=== PATIENT | female | born 1945 | race Two or more races ===

== ENCOUNTER → 2017-03-07 | Outpatient (CLI) | payer OTHER ==
[~2017-03-07] MED LIST: ANASTROZOLE1 MG PO; NABUMETONE500 MG PO; PERCOCET 5/3251 TAB PO; RELAFEN500 MG PO; VYTORIN 10/10 T1 TAB; [UNRECOGNIZED DRUG - OTHER] PO
== END | disposition home or self-care (01) ==
LOC: MAMO-SONO 07:52
DX: D05.11 Intraductal carcinoma in situ of right breast (principal)

== ENCOUNTER 2017-03-28 09:48 | Outpatient (CLI) | payer OTHER | END 2017-03-28 09:52 | disposition home or self-care (01) | LOC: MRI 09:48 | DX: M51.36 Other intervertebral disc degeneration, lumbar region (principal); M54.5 Low back pain | CPT/HCPCS: 72148 ==

== ENCOUNTER 2017-03-28 09:59 | Outpatient (CLI) | payer OTHER | END 2017-03-28 10:02 | disposition home or self-care (01) | LOC: RAD 09:59 | DX: M51.36 Other intervertebral disc degeneration, lumbar region (principal) ==

== ENCOUNTER 2017-03-28 12:23 | Outpatient (CLI) | payer OTHER | END 2017-03-28 13:00 | disposition home or self-care (01) | LOC: NUCLEAR 12:23 | DX: M85.80 Other specified disorders of bone density and structure, unspecified site (principal); E55.9 Vitamin D deficiency, unspecified; M81.0 Age-related osteoporosis without current pathological fracture ==

== ENCOUNTER 2017-04-07 07:15 | Day surgery (SDC) | payer OTHER | END 2017-04-07 16:15 | disposition home or self-care (01) | LOC: CIR.AMB 07:15 | DX: M47.896 Other spondylosis, lumbar region (principal) ==

== ENCOUNTER 2017-04-24 07:25 | Outpatient (CLI) | payer OTHER | END 2017-04-24 09:57 | disposition home or self-care (01) | LOC: RAD 07:25 | DX: M25.561 Pain in right knee (principal); M25.562 Pain in left knee ==

== ENCOUNTER 2017-05-02 10:05 | Outpatient (CLI) | payer OTHER | END 2017-05-02 10:11 | disposition home or self-care (01) | LOC: RAD 10:05 | DX: M25.571 Pain in right ankle and joints of right foot (principal) ==

== ENCOUNTER 2017-09-28 08:35 | Outpatient (CLI) | payer OTHER | END 2017-09-28 08:47 | disposition home or self-care (01) | LOC: RAD 08:35 | DX: M19.90 Unspecified osteoarthritis, unspecified site (principal) ==

== ENCOUNTER 2017-10-20 07:32 | Outpatient (CLI) | payer OTHER | END 2017-10-20 07:59 | disposition home or self-care (01) | LOC: MAMO-SONO 07:32 | DX: Z12.31 Encounter for screening mammogram for malignant neoplasm of breast (principal); Z87.898 Personal history of other specified conditions; N60.11 Diffuse cystic mastopathy of right breast; N60.12 Diffuse cystic mastopathy of left breast ==

== ENCOUNTER 2018-01-22 07:58 | Outpatient (CLI) | payer OTHER | END 2018-01-22 12:43 | disposition home or self-care (01) | LOC: LAB 07:58 | DX: D05.01 Lobular carcinoma in situ of right breast (principal); D64.89 Other specified anemias; R74.0 Nonspecific elevation of levels of transaminase and lactic acid dehydrogenase [LDH] ==

== ENCOUNTER 2018-04-26 07:19 | Outpatient (CLI) | payer OTHER | END 2018-04-26 07:28 | disposition home or self-care (01) | LOC: RAD 07:19 | DX: M19.90 Unspecified osteoarthritis, unspecified site (principal) ==

== ENCOUNTER 2018-05-10 07:55 | Outpatient (CLI) | payer OTHER | END 2018-05-10 08:30 | disposition home or self-care (01) | LOC: NUCLEAR 07:55 | DX: M25.461 Effusion, right knee (principal); M25.462 Effusion, left knee; M79.662 Pain in left lower leg; M79.661 Pain in right lower leg ==

== ENCOUNTER 2018-07-12 13:25 | Outpatient (CLI) | payer OTHER | END 2018-07-12 13:34 | disposition home or self-care (01) | LOC: RAD 501 13:25 | DX: M25.522 Pain in left elbow (principal) ==

== ENCOUNTER 2018-07-31 07:56 | Outpatient (CLI) | payer OTHER | END 2018-07-31 08:02 | disposition home or self-care (01) | LOC: RAD 07:56 | DX: M54.2 Cervicalgia (principal); M54.6 Pain in thoracic spine; M54.5 Low back pain ==

== ENCOUNTER 2018-08-29 10:52 | Outpatient (CLI) | payer OTHER | END 2018-08-29 11:05 | disposition home or self-care (01) | LOC: NUCLEAR 10:52 | DX: I87.2 Venous insufficiency (chronic) (peripheral) (principal) ==

== ENCOUNTER 2018-08-31 10:00 | Outpatient (CLI) | payer OTHER | END 2018-08-31 10:09 | disposition home or self-care (01) | LOC: NUCLEAR 10:00 | DX: I77.6 Arteritis, unspecified (principal); I73.9 Peripheral vascular disease, unspecified ==

== ENCOUNTER → 2018-09-03 | Outpatient (CLI) | payer OTHER | END | disposition home or self-care (01) | LOC: MAMO-SONO 08:15 | DX: N60.11 Diffuse cystic mastopathy of right breast (principal); D05.81 Other specified type of carcinoma in situ of right breast ==

== ENCOUNTER 2018-12-13 08:17 | Outpatient (CLI) | payer OTHER | END 2018-12-13 08:22 | disposition home or self-care (01) | LOC: MRI 08:17 | DX: M54.17 Radiculopathy, lumbosacral region (principal) | CPT/HCPCS: 72148 ==

== ENCOUNTER → 2018-12-31 | Outpatient (CLI) | payer OTHER | END | disposition home or self-care (01) | LOC: RAD 12:02 | DX: S62.91XA Unspecified fracture of right hand, initial encounter for closed fracture (principal) ==

== ENCOUNTER 2019-02-11 11:31 | Outpatient (CLI) | payer OTHER | END 2019-02-11 12:00 | disposition home or self-care (01) | LOC: RAD 11:31 | DX: S92.302A Fracture of unspecified metatarsal bone(s), left foot, initial encounter for closed fracture (principal) ==

== ENCOUNTER 2019-09-25 08:15 | Outpatient (CLI) | payer OTHER | END 2019-09-25 08:18 | disposition home or self-care (01) | LOC: MAMO-SONO 08:15 | PROVIDERS: ATTEND Internal Medicine Hematology & Oncology | DX: Z12.31 Encounter for screening mammogram for malignant neoplasm of breast (principal); Z17.0 Estrogen receptor positive status [ER+]; D05.11 Intraductal carcinoma in situ of right breast; N60.11 Diffuse cystic mastopathy of right breast; N60.12 Diffuse cystic mastopathy of left breast ==

== ENCOUNTER 2019-10-03 08:54 | Outpatient (CLI) | payer OTHER | END 2019-10-03 09:03 | disposition home or self-care (01) | LOC: RAD 08:54 | PROVIDERS: ATTEND Orthopaedic Surgery | DX: M25.561 Pain in right knee (principal); M25.562 Pain in left knee ==

== ENCOUNTER 2020-01-15 07:34 | Outpatient (CLI) | payer OTHER | END 2020-01-15 07:40 | disposition home or self-care (01) | LOC: SONOGRAMA 07:34 | PROVIDERS: ATTEND Surgery | DX: N60.01 Solitary cyst of right breast (principal); N60.11 Diffuse cystic mastopathy of right breast; N60.12 Diffuse cystic mastopathy of left breast ==

== ENCOUNTER 2020-02-03 12:37 | Outpatient (CLI) | payer OTHER | END 2020-02-03 12:53 | disposition home or self-care (01) | LOC: SONOGRAMA 12:37 | PROVIDERS: ATTEND Surgery | DX: N64.59 Other signs and symptoms in breast (principal); N60.11 Diffuse cystic mastopathy of right breast; N60.12 Diffuse cystic mastopathy of left breast; R92.0 Mammographic microcalcification found on diagnostic imaging of breast ==

== ENCOUNTER 2020-02-10 14:16 | Outpatient (CLI) | payer OTHER | END 2020-02-10 14:21 | disposition HB | LOC: RAD 14:16 | DX: M18.12 Unilateral primary osteoarthritis of first carpometacarpal joint, left hand (principal) ==

== ENCOUNTER 2020-04-07 07:35 | Outpatient (CLI) | payer OTHER | END 2020-04-07 07:38 | disposition home or self-care (01) | LOC: RAD 07:35 | PROVIDERS: ATTEND Orthopaedic Surgery | DX: M25.561 Pain in right knee (principal); M25.562 Pain in left knee ==

== ENCOUNTER → 2020-06-08 06:35 | Outpatient (CLI) | payer OTHER | END | disposition home or self-care (01) | LOC: LAB 06:35 | PROVIDERS: ATTEND Family Medicine | DX: E78.2 Mixed hyperlipidemia (principal); Z12.11 Encounter for screening for malignant neoplasm of colon; D64.89 Other specified anemias; I10 Essential (primary) hypertension; E03.8 Other specified hypothyroidism; E55.9 Vitamin D deficiency, unspecified; N39.8 Other specified disorders of urinary system ==

== ENCOUNTER → 2020-06-08 | Outpatient (CLI) | payer OTHER | END | disposition home or self-care (01) | LOC: TOM 08:15 → RAD 09:00 → TOM 06-09 13:20 | PROVIDERS: ATTEND Family Medicine | DX: M25.561 Pain in right knee (principal); G44.89 Other headache syndrome ==

== ENCOUNTER → 2020-06-09 | Outpatient (CLI) | payer OTHER | END | disposition home or self-care (01) | LOC: TOM 13:28 | PROVIDERS: ATTEND Family Medicine | DX: G93.89 Other specified disorders of brain (principal); M25.561 Pain in right knee; G44.89 Other headache syndrome ==

== ENCOUNTER 2020-06-16 07:28 | Outpatient (CLI) | payer OTHER | END 2020-06-16 07:39 | disposition home or self-care (01) | LOC: RAD 07:28 | PROVIDERS: ATTEND Family Medicine | DX: M25.562 Pain in left knee (principal); M25.552 Pain in left hip ==

== ENCOUNTER 2020-06-19 07:14 | Outpatient (CLI) | payer OTHER | END 2020-06-19 07:19 | disposition home or self-care (01) | LOC: RAD 07:14 | PROVIDERS: ATTEND Internal Medicine Cardiovascular Disease | DX: G54.1 Lumbosacral plexus disorders (principal) ==

== ENCOUNTER 2020-06-29 14:05 | Outpatient (CLI) | payer OTHER | END 2020-06-29 14:16 | disposition home or self-care (01) | LOC: MRI 14:05 | PROVIDERS: ATTEND Internal Medicine Cardiovascular Disease | DX: G54.1 Lumbosacral plexus disorders (principal) | CPT/HCPCS: 72148 ==

== ENCOUNTER 2020-07-31 07:56 | Outpatient (CLI) | payer OTHER | END 2020-07-31 08:05 | disposition home or self-care (01) | LOC: RAD 07:56 | PROVIDERS: ATTEND Physical Medicine & Rehabilitation | DX: S62.311A Displaced fracture of base of second metacarpal bone, left hand, initial encounter for closed fracture (principal); M54.6 Pain in thoracic spine ==

== ENCOUNTER → 2020-09-04 13:51 | Outpatient (CLI) | payer OTHER | END | disposition home or self-care (01) | LOC: RAD 13:51 | PROVIDERS: ATTEND Physical Medicine & Rehabilitation | DX: S80.01XA Contusion of right knee, initial encounter (principal); M17.11 Unilateral primary osteoarthritis, right knee; Z96.651 Presence of right artificial knee joint ==

== ENCOUNTER 2020-10-22 07:08 | Outpatient (CLI) | payer OTHER | END 2020-10-22 07:11 | disposition home or self-care (01) | LOC: LAB 07:08 | PROVIDERS: ATTEND Psychiatry & Neurology Neurology | DX: I10 Essential (primary) hypertension (principal); E03.8 Other specified hypothyroidism; G40.109 Localization-related (focal) (partial) symptomatic epilepsy and epileptic syndromes with simple partial seizures, not intractable, without status epilepticus; E55.9 Vitamin D deficiency, unspecified ==

== ENCOUNTER → 2020-10-22 | Outpatient (CLI) | payer OTHER | END | disposition home or self-care (01) | LOC: MRI 09:15 | PROVIDERS: ATTEND Psychiatry & Neurology Neurology | DX: G93.89 Other specified disorders of brain (principal); G30.1 Alzheimer's disease with late onset | CPT/HCPCS: 70551 ==

== ENCOUNTER 2020-10-29 11:07 | Outpatient (CLI) | payer OTHER | END 2020-10-29 11:12 | disposition home or self-care (01) | LOC: RAD 11:07 | PROVIDERS: ATTEND Physical Medicine & Rehabilitation | DX: M19.021 Primary osteoarthritis, right elbow (principal); M19.141 Post-traumatic osteoarthritis, right hand; M79.641 Pain in right hand; M77.11 Lateral epicondylitis, right elbow; M25.512 Pain in left shoulder ==

== ENCOUNTER → 2020-11-11 | Outpatient (CLI) | payer OTHER | END | disposition home or self-care (01) | LOC: RAD 13:31 | PROVIDERS: ATTEND Physical Medicine & Rehabilitation | DX: M51.37 Other intervertebral disc degeneration, lumbosacral region (principal); M54.5 Low back pain ==

== ENCOUNTER 2020-11-20 08:09 | Outpatient (CLI) | payer OTHER | END 2020-11-20 08:18 | disposition home or self-care (01) | LOC: MRI 08:09 | PROVIDERS: ATTEND Anesthesiology Pain Medicine | DX: M43.17 Spondylolisthesis, lumbosacral region (principal); D68.8 Other specified coagulation defects; M47.817 Spondylosis without myelopathy or radiculopathy, lumbosacral region; G89.11 Acute pain due to trauma; M51.36 Other intervertebral disc degeneration, lumbar region | CPT/HCPCS: 72148 ==

== ENCOUNTER 2020-11-23 13:08 | Outpatient (CLI) | payer OTHER | END 2020-11-23 13:12 | disposition home or self-care (01) | LOC: NUCLEAR 13:08 | PROVIDERS: ATTEND Anesthesiology Pain Medicine | DX: M85.9 Disorder of bone density and structure, unspecified (principal); M51.36 Other intervertebral disc degeneration, lumbar region; M47.817 Spondylosis without myelopathy or radiculopathy, lumbosacral region; M81.0 Age-related osteoporosis without current pathological fracture ==

== ENCOUNTER 2020-12-11 06:50 | Day surgery (SDC) | payer OTHER ==
[~2020-12-11 06:50] MED LIST changes: +DAILY VALUE1 EACH PO
== END 2020-12-11 11:10 | disposition home or self-care (01) ==
LOC: CIR.AMB 06:50
PROVIDERS: ATTEND Anesthesiology Pain Medicine
DX: M47.817 Spondylosis without myelopathy or radiculopathy, lumbosacral region (principal); M51.36 Other intervertebral disc degeneration, lumbar region; Z20.822 Contact with and (suspected) exposure to COVID-19

== ENCOUNTER 2021-02-02 07:59 | Outpatient (CLI) | payer OTHER | END 2021-02-02 08:07 | disposition home or self-care (01) | LOC: MAMO-SONO 07:59 | PROVIDERS: ATTEND Family Medicine | DX: N60.11 Diffuse cystic mastopathy of right breast (principal); N60.12 Diffuse cystic mastopathy of left breast; Z12.31 Encounter for screening mammogram for malignant neoplasm of breast ==

== ENCOUNTER 2021-04-23 07:19 | Outpatient (CLI) | payer OTHER | END 2021-04-23 07:20 | disposition home or self-care (01) | LOC: LAB 07:19 | PROVIDERS: ATTEND Family Medicine | DX: D50.9 Iron deficiency anemia, unspecified (principal); N39.0 Urinary tract infection, site not specified; I10 Essential (primary) hypertension; E78.00 Pure hypercholesterolemia, unspecified; Z12.11 Encounter for screening for malignant neoplasm of colon; M19.90 Unspecified osteoarthritis, unspecified site; M18.10 Unilateral primary osteoarthritis of first carpometacarpal joint, unspecified hand ==

== ENCOUNTER 2021-04-24 08:45 | Outpatient (CLI) | payer OTHER | END 2021-04-24 08:51 | disposition home or self-care (01) | LOC: LAB 08:45 | DX: N30.00 Acute cystitis without hematuria (principal); E78.00 Pure hypercholesterolemia, unspecified; Z12.11 Encounter for screening for malignant neoplasm of colon; I10 Essential (primary) hypertension; M19.90 Unspecified osteoarthritis, unspecified site ==

== ENCOUNTER → 2021-06-23 | Outpatient (CLI) | payer OTHER | END | disposition home or self-care (01) | LOC: RAD 08:06 | PROVIDERS: ATTEND Family Medicine | DX: R20.2 Paresthesia of skin (principal); G56.01 Carpal tunnel syndrome, right upper limb ==

== ENCOUNTER 2021-08-10 10:22 | Outpatient (CLI) | payer OTHER | END 2021-08-10 10:37 | disposition home or self-care (01) | LOC: RAD 10:22 | PROVIDERS: ATTEND Orthopaedic Surgery | DX: M54.50 Low back pain, unspecified (principal); M25.561 Pain in right knee; M25.562 Pain in left knee; M79.641 Pain in right hand; M79.642 Pain in left hand; M25.551 Pain in right hip; M25.552 Pain in left hip ==

== ENCOUNTER 2021-08-19 08:11 | Outpatient (CLI) | payer OTHER | END 2021-08-19 08:12 | disposition home or self-care (01) | LOC: NUCLEAR 08:11 | PROVIDERS: ATTEND Orthopaedic Surgery | DX: M25.461 Effusion, right knee (principal); M25.462 Effusion, left knee ==

== ENCOUNTER 2021-09-13 10:50 | Outpatient (CLI) | payer OTHER | END 2021-09-13 14:33 | disposition home or self-care (01) | LOC: TOM 10:50 | PROVIDERS: ATTEND Psychiatry & Neurology Clinical Neurophysiology | DX: I62.03 Nontraumatic chronic subdural hemorrhage (principal) ==

== ENCOUNTER → 2021-09-14 06:34 | Outpatient (CLI) | payer OTHER | END | disposition home or self-care (01) | LOC: LAB 06:34 | PROVIDERS: ATTEND Psychiatry & Neurology Clinical Neurophysiology | DX: E53.8 Deficiency of other specified B group vitamins (principal); E03.9 Hypothyroidism, unspecified ==

== ENCOUNTER 2021-09-14 12:52 | Inpatient (IN) | payer OTHER ==
[~2021-09-14] VITALS: Ht 149.9 cm; Wt 54.4 kg
== END 2021-09-23 08:04 | disposition designated cancer center or children's hospital (05) | DRG 282 ==
LOC: ER 12:52 → SEC-K 20:39 → MEDI 09-15 12:11 → SEC-K 09-15 15:18 → MEDJ 09-15 16:20
PROVIDERS: ADMIT Internal Medicine; ATTEND Internal Medicine
PROC: B246YZZ Ultrasonography of Right and Left Heart using Other Contrast (ICD-10-PCS; principal; 2021-09-15)
PROC: B246ZZZ Ultrasonography of Right and Left Heart (ICD-10-PCS; 2021-09-15)
DX: I21.4 Non-ST elevation (NSTEMI) myocardial infarction (principal); R00.1 Bradycardia, unspecified; E66.8 Other obesity; Z68.24 Body mass index [BMI] 24.0-24.9, adult; I24.9 Acute ischemic heart disease, unspecified; E78.5 Hyperlipidemia, unspecified

== ENCOUNTER 2021-10-20 10:16 | Outpatient (CLI) | payer OTHER | END 2021-10-20 10:27 | disposition home or self-care (01) | LOC: MRI 10:16 | PROVIDERS: ATTEND Psychiatry & Neurology Clinical Neurophysiology | DX: G30.1 Alzheimer's disease with late onset (principal); G31.84 Mild cognitive impairment of uncertain or unknown etiology | CPT/HCPCS: 70551 ==

== ENCOUNTER → 2021-11-02 | Emergency (ER) | payer OTHER ==
[~2021-11-02] VITALS: Ht 139.7 cm; Wt 68.0 kg
[~2021-11-02] MED LIST changes: +SIMVASTATIN5 MG
== END | disposition left against medical advice (07) ==
LOC: ER 06:53
DX: S70.11XA Contusion of right thigh, initial encounter (principal); W18.30XA Fall on same level, unspecified, initial encounter; Y93.F1 Activity, caregiving, bathing; Y92.012 Bathroom of single-family (private) house as the place of occurrence of the external cause; Z85.3 Personal history of malignant neoplasm of breast; I25.2 Old myocardial infarction

== ENCOUNTER 2022-02-04 07:25 | Outpatient (CLI) | payer OTHER | END 2022-02-04 07:43 | disposition home or self-care (01) | LOC: TOM 07:25 | PROVIDERS: ATTEND Psychiatry & Neurology Clinical Neurophysiology | DX: R22.1 Localized swelling, mass and lump, neck (principal) | CPT/HCPCS: 70491; Q9965 ==

== ENCOUNTER 2022-03-21 07:18 | Outpatient (CLI) | payer OTHER | END 2022-03-21 07:19 | disposition home or self-care (01) | LOC: LAB 07:18 | PROVIDERS: ATTEND Family Medicine | DX: Z12.11 Encounter for screening for malignant neoplasm of colon (principal) ==

== ENCOUNTER → 2022-03-21 | Outpatient (CLI) | payer OTHER | END | disposition home or self-care (01) | LOC: MAMO-SONO 07:39 | PROVIDERS: ATTEND Family Medicine | DX: N60.11 Diffuse cystic mastopathy of right breast (principal); N60.12 Diffuse cystic mastopathy of left breast; R19.8 Other specified symptoms and signs involving the digestive system and abdomen ==

== ENCOUNTER 2022-03-23 12:58 | Outpatient (CLI) | payer OTHER | END 2022-03-23 12:59 | disposition home or self-care (01) | LOC: NUCLEAR 12:58 | PROVIDERS: ATTEND Family Medicine | DX: M81.0 Age-related osteoporosis without current pathological fracture (principal) ==

== ENCOUNTER 2022-05-11 07:53 | Outpatient (CLI) | payer OTHER | END 2022-05-11 07:59 | disposition home or self-care (01) | LOC: RAD 07:53 | PROVIDERS: ATTEND Family Medicine | DX: R22.1 Localized swelling, mass and lump, neck (principal); M54.2 Cervicalgia ==

== ENCOUNTER 2022-05-17 13:33 | Outpatient (CLI) | payer OTHER | END 2022-05-17 13:44 | disposition home or self-care (01) | LOC: SONOGRAMA 13:33 | PROVIDERS: ATTEND Family Medicine | DX: R22.1 Localized swelling, mass and lump, neck (principal) ==

== ENCOUNTER 2022-11-15 09:55 | Outpatient (CLI) | payer OTHER | END 2022-11-15 10:01 | disposition home or self-care (01) | LOC: RAD 09:55 | PROVIDERS: ATTEND Physical Medicine & Rehabilitation | DX: S60.222A Contusion of left hand, initial encounter (principal); M79.642 Pain in left hand ==

== ENCOUNTER 2023-09-05 09:08 | Emergency (ER) | payer OTHER ==
[~2023-09-05] VITALS: Ht 147.3 cm; Wt 63.5 kg
== END 2023-09-05 12:49 | disposition home or self-care (01) ==
LOC: ER 09:09
DX: S09.8XXA Other specified injuries of head, initial encounter (principal); T14.90XA Injury, unspecified, initial encounter; W19.XXXA Unspecified fall, initial encounter; Y93.89 Activity, other specified; Y92.89 Other specified places as the place of occurrence of the external cause; Y99.8 Other external cause status

== ENCOUNTER 2023-10-23 09:52 | Outpatient (CLI) | payer OTHER | END 2023-10-23 09:54 | disposition home or self-care (01) | LOC: RAD 09:52 | PROVIDERS: ATTEND Family Medicine | DX: M75.102 Unspecified rotator cuff tear or rupture of left shoulder, not specified as traumatic (principal); M25.512 Pain in left shoulder ==

== ENCOUNTER 2023-10-26 11:47 | Outpatient (CLI) | payer OTHER | END 2023-10-26 11:51 | disposition home or self-care (01) | LOC: RAD 11:47 | PROVIDERS: ATTEND Family Medicine | DX: M25.569 Pain in unspecified knee (principal); Z96.653 Presence of artificial knee joint, bilateral ==

== ENCOUNTER 2023-12-01 12:01 | Outpatient (CLI) | payer OTHER | END 2023-12-01 12:04 | disposition home or self-care (01) | LOC: RAD 12:01 | PROVIDERS: ATTEND Family Medicine | DX: M54.51 Vertebrogenic low back pain (principal); S80.00XA Contusion of unspecified knee, initial encounter ==

== ENCOUNTER 2024-02-19 07:26 | Outpatient (CLI) | payer OTHER ==
[2024-02-19 08:02] LABS: URINE APPEARANCE Cloudy; URINE BILIRRUBIN Negative (NEGATIVE); URINE BLOOD Negative; URINE COLOR Dark Yellow; URINE GLUCOSE Negative (NEGATIVE); URINE KETONE Trace (NEGATIVE); URINE LEUKOCYTE Trace; URINE NITRATE Negative; URINE PROTEIN Trace (NEGATIVE)
[2024-02-19 08:03] LABS: URINE BACTERIA 79.5 uL (0.0-1933); URINE EPITHELIAL CELLS 54.4 uL (0.0-38.8); URINE RBC 8.2 uL (0.0-20.8); URINE WBC 9.9 uL (0.0-23.2)
[2024-02-19 08:06] LABS: HEMATOCRIT 40.5 % (36.0-45.00); HEMOGLOBIN 13.4 g/dL (12.0-15.00); MEAN CELL VOLUME 88.5 fL (80.00-100.00); MEAN CORPUSCULAR HEMOGLOBIN 29.2 pg (27.00-32.0); PLATELET COUNT 197 K/uL (150-450); RED BLOOD COUNT 4.58 M/uL (4.00-6.00); RED CELL DISTRIBUTION WIDTH 13.4 % (11.5-14.5); URINE CAST 0.29 uL (0.0-1.40)
[2024-02-19 08:53] LABS: ALBUMIN 3.7 gm/dL (3.4-5.0); BILIRUBIN TOTAL 0.67 mg/dL (0.3-1.2); CALCIUM 8.9 mg/dL (8.5-10.1); CHOL HDL RATIO 2.5 (0-5.0); CREATININE SERUM 0.75 mg/dL (0.55-1.02); GFR 74.93; GLOBULINA 2.5 G/DL (2.4-3.5); POTASSIUM 4.57 mEq/L (3.5-5.1); TOTAL PROTEIN 6.2 gm/dL (6.4-8.2)
[2024-02-19 09:32] LABS: ob NEGATIVE (NEGATIVE)
== END 2024-02-19 07:35 | disposition home or self-care (01) ==
LOC: LAB 07:26
PROVIDERS: ATTEND Family Medicine
DX: D50.9 Iron deficiency anemia, unspecified (principal); N30.00 Acute cystitis without hematuria; I11.9 Hypertensive heart disease without heart failure; E78.00 Pure hypercholesterolemia, unspecified; Z12.11 Encounter for screening for malignant neoplasm of colon

== ENCOUNTER 2024-03-26 11:35 | Emergency (ER) | payer OTHER ==
[~2024-03-26] VITALS: Ht 147.3 cm; Wt 64.4 kg
== END 2024-03-26 16:24 | disposition home or self-care (01) ==
LOC: ER 11:37
DX: S29.8XXA Other specified injuries of thorax, initial encounter (principal); W18.39XA Other fall on same level, initial encounter; Y93.89 Activity, other specified; Y92.89 Other specified places as the place of occurrence of the external cause; I25.2 Old myocardial infarction

== ENCOUNTER 2024-03-29 12:51 | Outpatient (CLI) | payer OTHER | END 2024-03-29 12:52 | disposition home or self-care (01) | LOC: NUCLEAR 12:51 | PROVIDERS: ATTEND Family Medicine | DX: M81.0 Age-related osteoporosis without current pathological fracture (principal) ==

== ENCOUNTER 2024-08-20 07:40 | Outpatient (CLI) | payer OTHER | END 2024-08-20 07:44 | disposition home or self-care (01) | LOC: RAD 07:40 | DX: M16.9 Osteoarthritis of hip, unspecified (principal) ==

== ENCOUNTER 2024-08-23 09:12 | Outpatient (CLI) | payer OTHER | END 2024-08-23 09:24 | disposition home or self-care (01) | LOC: MRI 09:12 | PROVIDERS: ATTEND Anesthesiology | DX: M51.360 Other intervertebral disc degeneration, lumbar region with discogenic back pain only (principal); M54.17 Radiculopathy, lumbosacral region; M54.12 Radiculopathy, cervical region | CPT/HCPCS: 72141; 72148 ==

== ENCOUNTER 2024-09-11 07:53 | Outpatient (CLI) | payer OTHER ==
[2024-09-11 08:24] LABS: BASO % 0.6 % (0.1-1.2); EOS # 0.21 (0.04-0.54); EOS % 4.1 % (0.7-7.0); LYMPH # 1.33 (1.18-3.74); LYMPH % 25.9 % (19.3-53.1); MEAN PLATELET VOLUME 10.30 fl (9.4-12.4); MONO # 0.47 (0.24-0.82); MONO % 9.1 % (4.7-12.5); NEUT # 3.09 (1.56-6.13); NEUT % 60.1 % (34.0-71.1); RED CELL DISTRIBUTION WIDTH 13.4 % (11.6-14.4)
[2024-09-11 09:35] LABS: ALT/SGPT 18.0 U/L (12-78); AST/SGOT 12.0 U/L (15-37); BILIRUBIN TOTAL 0.54 mg/dL (0.3-1.2); BUN CREA RATIO 20.0 (7.0-25.0); CREATININE SERUM 0.61 mg/dL (0.55-1.02); GFR 94.86; GLOBULINA 2.5 G/DL (2.4-3.5); GLUCOSE FASTING 88.0 mg/dL (65-100); OSMOLALITY SERUM 290.0 MOSM/KG (275-295)
== END 2024-09-11 07:55 | disposition home or self-care (01) ==
LOC: LAB 07:53
PROVIDERS: ATTEND Internal Medicine
DX: K59.00 Constipation, unspecified (principal); R10.30 Lower abdominal pain, unspecified

== ENCOUNTER 2024-09-12 08:26 | Outpatient (CLI) | payer OTHER | END 2024-09-12 08:40 | disposition home or self-care (01) | LOC: TOM 08:26 | PROVIDERS: ATTEND Internal Medicine | DX: R10.32 Left lower quadrant pain (principal) | CPT/HCPCS: 74177; Q9965 ==

== ENCOUNTER 2024-09-23 08:50 | Emergency (ER) | payer OTHER ==
[~2024-09-23] VITALS: Ht 149.9 cm; Wt 64.4 kg
[2024-09-23] MEDS ORDERED: KETOROLAC TROMETHAMINE 60 MG VIAL IM ONE (09:30)
[2024-09-23] MEDS ORDERED: NORFLEX100MG PO (10:40)
== END 2024-09-23 11:01 | disposition home or self-care (01) ==
LOC: ER 08:50
DX: G89.11 Acute pain due to trauma (principal); M25.512 Pain in left shoulder; M54.59 Other low back pain; W13.8XXA Fall from, out of or through other building or structure, initial encounter; Y93.89 Activity, other specified; Y92.89 Other specified places as the place of occurrence of the external cause; M85.88 Other specified disorders of bone density and structure, other site
CPT/HCPCS: 72070; 72100; 73030; 73551; 73560; 77071; 96372; 99283; J1885

== ENCOUNTER 2024-10-02 11:27 | Outpatient (CLI) | payer OTHER ==
[~2024-10-02 11:27] MED LIST changes: +NORFLEX100MG PO
== END 2024-10-02 11:29 | disposition home or self-care (01) ==
LOC: RAD 11:27
PROVIDERS: ATTEND Psychiatry & Neurology Clinical Neurophysiology
DX: S73.005A Unspecified dislocation of left hip, initial encounter (principal); S49.92XA Unspecified injury of left shoulder and upper arm, initial encounter

== ENCOUNTER 2024-11-15 12:45 | Outpatient (CLI) | payer OTHER | END 2024-11-15 12:48 | disposition home or self-care (01) | LOC: RAD 12:45 | DX: M54.51 Vertebrogenic low back pain (principal) ==

== ENCOUNTER 2024-11-16 07:37 | Outpatient (CLI) | payer OTHER ==
[2024-11-16 09:31] LABS: BASO % 0.9 % (0.1-1.2); EOS # 0.15 (0.04-0.54); EOS % 3.3 % (0.7-7.0); LYMPH # 1.09 (1.18-3.74); LYMPH % 24.0 % (19.3-53.1); MEAN PLATELET VOLUME 10.70 fl (9.4-12.4); MONO # 0.38 (0.24-0.82); MONO % 8.4 % (4.7-12.5); NEUT # 2.87 (1.56-6.13); NEUT % 63.2 % (34.0-71.1); RED CELL DISTRIBUTION WIDTH 13.2 % (11.6-14.4)
[2024-11-16 10:08] LABS: ALT/SGPT 14.0 U/L (12-78); AST/SGOT 13.0 U/L (15-37); BILIRUBIN TOTAL 0.42 mg/dL (0.3-1.2); BUN CREA RATIO 18.0 (7.0-25.0); CREATININE SERUM 0.56 mg/dL (0.55-1.02); GFR 104.7; GLOBULINA 2.5 G/DL (2.4-3.5); GLUCOSE FASTING 85.0 mg/dL (65-100); OSMOLALITY SERUM 285.0 MOSM/KG (275-295)
== END 2024-11-16 07:41 | disposition home or self-care (01) ==
LOC: LAB 07:37
PROVIDERS: ATTEND Internal Medicine
DX: K59.00 Constipation, unspecified (principal); R10.30 Lower abdominal pain, unspecified

== ENCOUNTER 2024-11-18 07:41 | Outpatient (CLI) | payer OTHER ==
[2024-11-18 08:53] LABS: BASO % 0.8 % (0.1-1.2); EOS # 0.22 (0.04-0.54); EOS % 4.5 % (0.7-7.0); LYMPH # 1.14 (1.18-3.74); LYMPH % 23.5 % (19.3-53.1); MEAN PLATELET VOLUME 10.20 fl (9.4-12.4); MONO # 0.43 (0.24-0.82); MONO % 8.8 % (4.7-12.5); NEUT # 3.02 (1.56-6.13); NEUT % 62.2 % (34.0-71.1); RED CELL DISTRIBUTION WIDTH 13.2 % (11.6-14.4)
[2024-11-18 10:08] LABS: ALT/SGPT 16.0 U/L (12-78); AST/SGOT 15.0 U/L (15-37); BILIRUBIN TOTAL 0.43 mg/dL (0.3-1.2); BUN CREA RATIO 21.0 (7.0-25.0); CREATININE SERUM 0.53 mg/dL (0.55-1.02); GFR 111.57; GLOBULINA 2.4 G/DL (2.4-3.5); GLUCOSE FASTING 85.0 mg/dL (65-100); OSMOLALITY SERUM 287.0 MOSM/KG (275-295); TSH 2.48 uIU/mL (0.358-3.74)
== END 2024-11-18 07:46 | disposition home or self-care (01) ==
LOC: LAB 07:41
PROVIDERS: ATTEND Internal Medicine
DX: K59.00 Constipation, unspecified (principal); R10.30 Lower abdominal pain, unspecified

== ENCOUNTER 2024-12-03 06:59 | Outpatient (CLI) | payer OTHER | END 2024-12-03 07:02 | disposition home or self-care (01) | LOC: LAB 06:59 | PROVIDERS: ATTEND Psychiatry & Neurology Neurology | DX: E03.9 Hypothyroidism, unspecified (principal); A53.9 Syphilis, unspecified; D51.9 Vitamin B12 deficiency anemia, unspecified ==

== ENCOUNTER 2024-12-03 07:21 | Outpatient (CLI) | payer OTHER | END 2024-12-03 07:22 | disposition home or self-care (01) | LOC: MRI 07:21 | PROVIDERS: ATTEND Psychiatry & Neurology Neurology | DX: G30.1 Alzheimer's disease with late onset (principal) | CPT/HCPCS: 70551 ==